=== PATIENT | female | born 1995 | race Caucasian/White ===

== ENCOUNTER 2021-05-12 08:56 | Emergency (ER) | payer OTHER, SELFPAY ==
[2021-05-12 09:03] VITALS: BP 104/66; PULSE 74; RESP 16; TEMP 36.7; O2SAT 99
--- NOTE | 2021-05-12 09:20 | ED.GENADUL_ITS ---
Discharge Plan Disposition Patient Disposition: HOME Condition: Stable Discharge Details Clinical Impression: Closed head injury with concussion Primary Care Provider: None,None ED Provider: Isi Small Home Meds and New Rx's Prescriptions: No Action No Known Home Meds RF: 0 Discharge Instructions Instructions: Head Injury (ED) Additional Instructions: Follow up with primary care provider in 3-5 days. Return to ED sooner if any worsening headache, vomiting or concerns. Increase oral fluids. Please take Tylenol or Ibuprofen with food every 4-6 hours as needed for pain and swelling. The CT of your head today was within normal limits. Please take the nausea medications as directed up to 3 times daily. Return for any worsening blurry vision, vomiting or any concerns. Stand Alone Forms: Work Release Discharge Data Discharge Date/Time-TO BE ENTERED AT DEPARTURE: 05/12/21 10:33 Medical Decision Making 26-year-old female presents to the ER chief complaint of closed head injury which occurred just prior to arrival while at work. Patient states that she was lifting a board and a 5 pound metal object struck on the left forehead. No loss of consciousness. Does endorse some blurry vision, nausea. Denies any neck pain. Did not take any medications prior to arrival. CT head without ordered to rule out skull fracture or intracranial abnormality. Discussed with and benefits of patient verbalized understanding. Zofran ibuprofen. Patient denies chance of . EXAM: CT HEAD WO CLINICAL HISTORY: Head Injury, blurry vision. TECHNIQUE: Imaging Protocol: Axial computed tomography images with coronal and sagittal reformatted images were created and reviewed COMPARISON: No exams were available for comparison FINDINGS: There are no skull fractures nor fluid in the visualized paranasal sinuses. There is no evidence of intracranial hemorrhage, mass effect, or shift of midline structures. There are no extra-axial fluid collections. The ventricles are not enlarged or shifted and there is no blood within the ventricular system nor within the basal cisterns. IMPRESSION: No acute intracranial findings on this noninfused CT scan of the brain. CT results relayed to patient. Patient remained hemodynamically stable alert and oriented throughout stay. Patient discharged with follow-up with PCP. Instructed to return for any red flags. This text was generated using [employer] system, please disregard any oddities of phrase or misspellings. HPI General Mode of arrival: ambulatory . Date/Time Provider Initiated Documentation: 05/12/21 09:14 . Limitations to Documentation: no limitations . Information obtained by: patient and RN notes reviewed . HPI Narrative: 26-year-old female presents to the ER chief complaint of closed head injury which occurred just prior to arrival while at work. Patient states that she was lifting a board and a 5 pound metal object struck on the left forehead. No loss of consciousness. Does endorse some blurry vision, nausea. Denies any neck pain. Did not take any medications prior to arrival. Related Data Home Medications Medication Instructions Recorded Confirmed Unknown [No Known Home Meds] 05/12/21 05/12/21 Allergies Allergy/AdvReac Type Severity Reaction Status Date / Time No Known Allergies Allergy Unverified 05/12/21 09:02 General Stated Complaint: HeadInjury KWAN: 3 Review of Systems All systems reviewed & are unremarkable except as noted in HPI and below Constitutional Constitutional: Reports headache(s) ENT Ears, Nose, Mouth, and Throat: Denies otalgia, Denies facial pain, Reports headache(s), Denies hearing loss and Denies neck pain Gastrointestinal Gastrointestinal: Reports nausea Musculoskeletal Musculoskeletal: Denies neck pain Neurologic Neurologic: Reports as per HPI, Reports headache(s) and Reports other visual disturbances [facility] Social History Smoking/Tobacco Use Status: Current every day Tobacco Type: cigarettes Smoking risk assessment performed?: Yes Alcohol Intake: current Alcohol Intake frequency: holidays/special occasions only Drug use: Never Substance use type: does not use Do you feel safe at home: Yes Do you feel safe in your relationship?: Yes Exam Narrative Exam Narrative: Constitutional: Alert and oriented x3. Appears stated age. Normal body habitus. Head: Normocephalic, small hematoma noted to left frontal scalp, tenderness palpation. Eyes: Pupils PERRLA, Red reflex noted, EOM's intact. Eyelids symmetrical without lesions, discharge, or swelling. ENT: Bilateral TM's WNL, External ear normal to inspection, no mastoid TTP, swelling, or erythema, Nasal turbinates WNL, no nasal discharge. Normal dentition, Posterior pharynx WNL, no exudate. Chest: RRR, Normal S1, S2, distal pulses intact. Resp: Lungs clear to auscultation bilaterally, no wheezes, rales, or rhonchi. Musculoskeletal: Normal gait, 5/5 strength to all four extremities. Skin: No suspicious rashes or lesions. Capillary refill less than 2 sec. Neurologic: Cranial nerves II-XII intact. Alert and oriented x 3. Hematologic/Lymphatic: No ecchymosis, no lymphadenopathy. Course Vital Signs Vital signs: Vital Signs Temperature 36.7 C 05/12/21 09:03 Pulse 74 05/12/21 09:03 Respiratory Rate 16 05/12/21 09:03 Blood Pressure 104/66 05/12/21 09:03 Pulse Oximetry 99 05/12/21 09:03 Temperature 36.7 C 05/12/21 09:03 Temperature Source Oral 05/12/21 09:03 Pulse 74 05/12/21 09:03 Respiratory Rate 16 05/12/21 09:03 Respiratory Effort Non-Labored 05/12/21 09:09 Respiratory Depth Normal 05/12/21 09:09 Respiratory Pattern Normal 05/12/21 09:09 Blood Pressure 104/66 05/12/21 09:03 Pulse Oximetry 99 05/12/21 09:03 Oxygen Delivery Method Room Air 05/12/21 09:03 Oxygen Flow Rate 0 05/12/21 09:03 Pain Level 8 05/12/21 09:03
[2021-05-12] MEDS: Ibuprofen 600 MG TAB PO (09:25)
[2021-05-12] MEDS: Ondansetron O.D.T. 4 MG TABEF PO (09:26)
--- NOTE | 2021-05-12 09:50 | DI.CT_ITS ---
Exam(s) CT HEAD WO EXAM: CT HEAD WO CLINICAL HISTORY: Head Injury, blurry vision. TECHNIQUE: Imaging Protocol: Axial computed tomography images with coronal and sagittal reformatted images were created and reviewed COMPARISON: No exams were available for comparison FINDINGS: There are no skull fractures nor fluid in the visualized paranasal sinuses. There is no evidence of intracranial hemorrhage, mass effect, or shift of midline structures. There are no extra-axial fluid collections. The ventricles are not enlarged or shifted and there is no blo od within the ventricular system nor within the basal cisterns. IMPRESSION: No acute intracranial findings on this noninfused CT scan of the brain. Report called to ER physician by myself RADIATION DOSE DELIVERED: 745.91mGy.cm Total DLP DATA REPOSITORY: All CT scans at this facility are submitted to the National Radiology Data Registry (NRDR) Dose Index Registry (DIR) with the [employer] (A[employer]). RADIATION OPTIMIZATION: All CT scans at this facility use at least one of these dose optimization te chniques: automated exposure control; mA and/or kV adjustment per patient size (includes targeted exa ms where dose is matched to clinical indication); or iterative reconstruction.
[2021-05-12] MEDS: Ondansetron O.D.T. 4 MG TABEF, 3 TABS/BTL PO (10:29)
[2021-05-12 10:34] VITALS: BP 100/68; PULSE 72; RESP 16; O2SAT 99
--- NOTE | 2021-05-12 18:45 | NUR.NOTE ---
Nursing Note: Referral to care management to establish pcp - libl 05/12/21
== END 2021-05-12 10:33 | disposition home or self-care (01) ==
PROVIDERS: Emergency Provider Registered Nurse Emergency
DX: S09.8XXA Other specified injuries of head, initial encounter (principal); S06.0X0A Concussion without loss of consciousness, initial encounter; W22.8XXA Striking against or struck by other objects, initial encounter; Y99.0 Civilian activity done for income or pay; R11.0 Nausea; H53.8 Other visual disturbances
CPT/HCPCS: 81025; 99284; 70450

== ENCOUNTER 2022-05-28 13:19 | Outpatient (REF) | payer SELFPAY | END 2022-05-28 13:20 | disposition home or self-care (01) | LOC: LBN 13:19 | PROVIDERS: Visit Provider Physician Assistant | DX: J02.9 Acute pharyngitis, unspecified (principal) | CPT/HCPCS: 87077; 87070 ==

== ENCOUNTER 2023-01-18 05:16 | Emergency (ER) | payer BC, SELFPAY ==
--- NOTE | 2023-01-18 05:15 | RT.EKG_ITS ---
APPROVED REPORT Exam: Resting ECG Reason for Exam: chest pain Patient Location: E HR:69 bpm ECG Measurements Heart Rate 69 AXIS WA 111 P 69 QRSd 92 QRS 77 QT 410 T 62 QTc 441 Conclusion Sinus rhythm...normal P axis, V-rate 60- 99. Sinus. Normal axis. Normal intervals. No STEMI. I have reviewed and interpreted ECG and agree with software generated interpretation.
[2023-01-18 05:19] VITALS: BP 109/60; PULSE 74; RESP 20; TEMP 36.7; O2SAT 100
--- NOTE | 2023-01-18 05:25 | ED.GENADUL_ITS ---
Discharge Plan Disposition Patient Disposition: Home Condition: Improving Discharge Details Clinical Impression: Chest wall pain ED Provider: Penelope Anderson Home Meds and New Rx's Prescriptions: Continued amoxicillin-pot clavulanate 875-125 mg tablet 1 tab PO BID Qty: 14 0RF Rx Instructions: Take with meal. Take 1 pill every 12 hours x 7days albuterol sulfate 90 mcg/actuation HFA aerosol inhaler 2 puff inhalation Q6H PRN (Reason: shortness of breath or wheezing) Qty: 6.7 0RF Rx Instructions: 2 puffs every 6 hours as needed for cough,sob, or wheeze benzonatate 100 mg capsule 100 mg PO TID PRN (Reason: cough) Qty: 20 0RF Rx Instructions: May take 1 capsule every 8 hours as needed for cough Discharge Instructions Instructions: Chest Wall Pain (ED) Additional Instructions: Your blood tests and EKG today are reassuring and show no evidence of acute concerning or significant findings. The final report of your chest x-ray is still pending and you will be notified if the radiologist notes any abnormal or concerning findings. Your symptoms could be due to a muscle strain, indigestion or a developing viral illness. Drink plenty of fluids and get plenty of rest. Alternate tylenol and motrin as needed and directed for pain. You have been placed on care management list to arrange for a follow-up appointment with a primary care doctor to establish care and for reevaluation. Return immediately to the emergency department if you develop any worsening or new concerning symptoms. Stand Alone Forms: Work Release Discharge Data Discharge Date/Time-TO BE ENTERED AT DEPARTURE: 01/18/23 06:54 Discharge Physician: Penelope Anderson Medical Decision Making 2903 -- 27-year-old female with history of former smoking quit 18 months ago presents with left-sided chest pain under her left breast that only occurs with deep breath with occasional radiation to her left upper chest since last night. EKG notes a rate of 69, normal axis, normal intervals, no STEMI. Vitals within normal limits. She localizes her main area of pain as the area underneath her left breast. There is no evidence of cellulitis, trauma, rash or tenderness. She does have an area of tenderness to the left superior anterior chest without evidence of cellulitis, trauma, rash or tenderness. Her lung sounds are clear throughout without rhonchi or wheezing. She has no lower extremity edema or calf tenderness. She has no fever, cough or shortness of breath to suggest pneumonia. She has no constant tearing or ripping sensation to suggest dissection. She has no tachypnea, tachycardia or hypoxia to suggest PE. Will obtain screening labs, chest x-ray and give IV Toradol and IV Pepcid and reassess. 0645 --Labs and imaging reviewed. Normal white blood cell count, electrolytes, troponin and lipase. Chest x-ray notes a questionable haziness in the left lung base. Final report pending. As patient has no report of productive cough, fever, hypoxia or tachycardia, will hold on treatment for pneumonia at this time. Patient reassessed and she reports she is feeling better would like to go home. Discussed that she will be notified if the radiologist identifies any acute or concerning findings. Advised to alternate Tylenol and Motrin. Advised that she can consider starting a daily [id number] Pepcid for 1 to 2 weeks. She was placed on care management's list to arrange for a follow-up appointment with the primary care doctor to establish care. Usual and customary return precautions given prior to discharge. X-ray resulted after discharge and no acute findings. Medical Records Medical records reviewed: Yes I reviewed the patient's medical records. Imaging Data Radiologic Study: Radiologist's impression: XR Chest Exam date and time: 01/18/2023 5:59 AM Age: 27 years old Clinical indication: Pain; Left-sided; Additional info: L sided anterior chest pain, R/O acute disease TECHNIQUE: Imaging protocol: Radiologic exam of the chest. Views: 2 views. COMPARISON: No relevant prior studies available. FINDINGS: Lungs: Unremarkable. No consolidation. Pleural spaces: Unremarkable. No pleural effusion. No pneumothorax. Heart/Mediastinum: Unremarkable. No cardiomegaly. Bones/joints: Unremarkable. IMPRESSION: No evidence for acute pulmonary disease. Lab Data Lab results reviewed: Yes I reviewed the patient's lab results. Labs: Laboratory Tests Range/Units 01/18/23 01/18/23 01/18/23 05:30 05:30 05:30 WBC (4.4-10.8) 10^3/uL 6.88 RBC (3.93-5.22) 10^6/uL 4.71 Hgb (11.2-15.7) g/dL 13.8 Hct (36.0-46.0) % 41.4 MCV (80-95) fL 88 MCH (27.0-33.0) pg 29.3 MCHC (32.0-36.0) % 33.3 RDW (11.7-14.6) % 12.4 Plt Count (130-400) 10^3/uL 307 MPV (8.0-11.0) fL 9.9 Immature Gran % 0.1 Neutrophils % 42.5 Lymphocytes % 46.5 Monocytes % 8.3 Eosinophils % 2.0 Basophils % 0.6 Nucleated RBC % (0.0-0.3) % 0.0 Absolute Neutrophils (1.2-6.7) 10^3/uL 2.92 Absolute Lymphocytes (1.2-3.4) 10^3/uL 3.20 Absolute Monocytes (0.1-0.8) 10^3/uL 0.57 Absolute Eosinophils (0.0-0.7) 10^3/uL 0.14 Absolute Basophils (0.0-0.2) 10^3/uL 0.04 D-Dimer (<500) ng/mlFEU 204 Sodium (136-145) mmol/L 139 Potassium (3.5-5.1) mmol/L 3.8 Chloride (98-107) mmol/L 104 Carbon Dioxide (21.0-32.0) mmol/L 26.4 Anion Gap (3-11) mmol/L 8.6 BUN (7-18) mg/dL 9 Creatinine (0.55-1.02) mg/dL 0.7 Est GFR (CKD-EPI 2020) (mL/min/1.73m2) 122.25 Glucose (74-106) mg/dL 90 Calcium (8.5-10.1) mg/dL 9.1 Magnesium (1.8-2.4) mg/dL 1.8 Total Bilirubin (0.2-1.0) mg/dL 0.6 AST (15-37) U/L 11 L ALT (14-59) U/L 19 Alkaline Phosphatase (46-116) U/L 126 H Troponin I (<or=60) ng/L < 50 Total Protein (6.4-8.2) g/dL 7.5 Albumin (3.4-5.0) g/dL 3.8 Lipase (16-77) U/L Range/Units 01/18/23 05:30 WBC (4.4-10.8) 10^3/uL RBC (3.93-5.22) 10^6/uL Hgb (11.2-15.7) g/dL Hct (36.0-46.0) % MCV (80-95) fL MCH (27.0-33.0) pg MCHC (32.0-36.0) % RDW (11.7-14.6) % Plt Count (130-400) 10^3/uL MPV (8.0-11.0) fL Immature Gran % Neutrophils % Lymphocytes % Monocytes % Eosinophils % Basophils % Nucleated RBC % (0.0-0.3) % Absolute Neutrophils (1.2-6.7) 10^3/uL Absolute Lymphocytes (1.2-3.4) 10^3/uL Absolute Monocytes (0.1-0.8) 10^3/uL Absolute Eosinophils (0.0-0.7) 10^3/uL Absolute Basophils (0.0-0.2) 10^3/uL D-Dimer (<500) ng/mlFEU Sodium (136-145) mmol/L Potassium (3.5-5.1) mmol/L Chloride (98-107) mmol/L Carbon Dioxide (21.0-32.0) mmol/L Anion Gap (3-11) mmol/L BUN (7-18) mg/dL Creatinine (0.55-1.02) mg/dL Est GFR (CKD-EPI 2020) (mL/min/1.73m2) Glucose (74-106) mg/dL Calcium (8.5-10.1) mg/dL Magnesium (1.8-2.4) mg/dL Total Bilirubin (0.2-1.0) mg/dL AST (15-37) U/L ALT (14-59) U/L Alkaline Phosphatase (46-116) U/L Troponin I (<or=60) ng/L Total Protein (6.4-8.2) g/dL Albumin (3.4-5.0) g/dL Lipase (16-77) U/L 32 ECG Data Attestation: I personally reviewed and interpreted this ECG (s) as follows: Interpretation: Rate of 69, normal axis, normal intervals, no STEMI. HPI General Mode of arrival: ambulatory . Date/Time Provider Initiated Documentation: 01/18/23 05:22 . Limitations to Documentation: no limitations . Information obtained by: patient . HPI Narrative: Patient is a 27-year-old female with a former smoking history who quit 18 months ago presents with what she reports as lung pain on the left side of her chest since 9 PM last night. Patient states the pain started while she was sitting down eating. She states she was eating white rice and a Dr. Pepper. She states the pain has been sharp and stabbing and only occurring with deep breath and when laying on her left side. She states the pain does occasionally radiate to the area above her left breast. She denies any known injury but states she work s at the [employer] and does frequently lift and carry boxes. She denies any known fever, sore throat, cough, difficulty breathing, nausea, vomiting, diarrhea, abdominal pain, leg pain or swelling, recent travel, recent surgery, alcohol or drug use. She has not taken any medication for her pain. Related Data Home Medications Medication Instructions Recorded Confirmed albuterol sulfate 90 mcg/actuation 2 puff inhalation Q6H PRN 07/04/22 07/04/22 aerosol inhaler shortness of breath or wheezing #6.7 grams amoxicillin 875 mg-potassium 1 tab PO BID #14 tabs 07/04/22 07/04/22 clavulanate 125 mg tablet benzonatate 100 mg capsule 100 mg PO TID PRN cough #20 caps 07/04/22 07/04/22 Previous Rx's Medication Instructions Recorded albuterol sulfate 90 mcg/actuation 2 puff inhalation Q6H PRN 07/04/22 aerosol inhaler shortness of breath or wheezing #6.7 grams amoxicillin 875 mg-potassium 1 tab PO BID #14 tabs 07/04/22 clavulanate 125 mg tablet benzonatate 100 mg capsule 100 mg PO TID PRN cough #20 caps 07/04/22 Allergies Allergy/AdvReac Type Severity Reaction Status Date / Time No Known Allergies Allergy Unverified 07/04/22 16:26 General Stated Complaint: RespSymp KWAN: 3 Review of Systems All systems reviewed & are unremarkable except as noted in HPI and below Constitutional Constitutional: Reports as per HPI, Denies chills and Denies fever(s) Eyes Eyes: Denies blurry vision ENT Ears, Nose, Mouth, and Throat: Denies dizziness, Denies sore throat and Denies throat swelling Cardiovascular Cardiovascular: Denies chest pain and Denies dyspnea Respiratory Respiratory: Denies cough and Denies dyspnea Comments: lung pain Gastrointestinal Gastrointestinal: Denies abdominal pain, Denies diarrhea and Denies vomiting Genitourinary Genitourinary: Denies hematuria and Denies dysuria Musculoskeletal Musculoskeletal: Denies back pain and Denies numbness Integumentary/Breasts Skin/Breast: Denies lesions and Denies rash Neurologic Neurologic: Denies dizziness, Denies localized weakness and Denies numbness Allergic/Immunologic Allergic/Immunologic: Denies throat swelling PFSH All Active Problems (Updated 01/18/23 @ 06:47 by Penelope Anderson DO) Chest wall pain (Acute) Closed head injury with concussion (Acute) Medical History (Updated 01/18/23 @ 06:47 by Penelope Anderson DO) No significant past medical history Surgical History (Updated 01/18/23 @ 05:43 by Penelope Anderson DO) History of oral surgery Social History Smoking/Tobacco Use Status: Former Tobacco Use Quit Date: 09/04/20 Tobacco: How many years used: 10 Smoking risk assessment performed?: Yes Alcohol Intake: current Alcohol Intake frequency: holidays/special occasions only Drug use: Never Substance use type: does not use Do you feel safe at home: Yes Do you feel safe in your relationship?: Yes Exam Const General: cooperative, healthy appearing and no acute distress Orientation: alert, awake and oriented x3 HENMT Head: normal to inspection Face and sinus: normal facial exam Eyes General: appearance normal, both eyes and all related structures Pupils: PERRL EOM: EOM intact bilaterally Neck Neck: normal visual inspection and No submandibular swelling Lymphatic: no lymphadenopathy noted Chest Chest: normal inspection of the chest and no tenderness Chest/axillae images: 1. Tenderness to palpation to anterior superior chest above left breast. No erythema, edema, rash, ecchymosis or lesions. 2. Main location of pain, nontender, no erythema, edema, rash, ecchymosis or lesions. Resp Effort & Inspection: normal respiratory effort and able to speak in complete sentences Auscultation: clear to auscultation bilaterally Cardio Rate: regular rate Rhythm: regular rhythm GI Inspection: normal to inspection Palpation: soft, not firm, not rigid and nontender Auscultation: hypoactive bowel sounds Back/Spine/Pelvis Thoracic/Lumbar Spine: thoracic and lumbar spine normal to inspection Pelvis: no pain with anterior-posterior compression Skin General skin exam: no rashes or lesions noted Neuro General: patient alert, patient awake and patient oriented x3 Cognition: normal cognition Speech: speech normal Motor: muscle tone normal throughout Sensory Exam: no sensory deficits noted Extrem General: normal to inspection, full ROM, capillary refill normal, no calf tenderness bilaterally and no edema Psych Appearance: grossly normal Mental Status: mental status grossly normal Speech and Movement: speech and movement normal Affect: normal affect Course Vital Signs Vital signs: Vital Signs Temperature 98.0 F 01/18/23 05:19 Pulse 74 01/18/23 05:19 Respiratory Rate 20 01/18/23 05:19 Blood Pressure 109/60 01/18/23 05:19 Pulse Oximetry 100 01/18/23 05:19 Temperature 98.0 F 01/18/23 05:19 Temperature Source Oral 01/18/23 05:19 Pulse 74 01/18/23 05:19 Respiratory Rate 20 01/18/23 05:19 Blood Pressure 109/60 01/18/23 05:19 Blood Pressure Position Sitting 01/18/23 05:19 Pulse Oximetry 100 01/18/23 05:19 Oxygen Delivery Method Room Air 01/18/23 05:19 Oxygen Flow Rate 0 01/18/23 05:19 Pain Level 7 01/18/23 05:19
--- NOTE | 2023-01-18 05:30 | DI.RAD_ITS ---
Exam(s) XR CHEST 2V PA LATERAL EXAM: XR CHEST 2V PA LATERAL CLINICAL HISTORY: L sided anterior chest pain, r/o acute disease TECHNIQUE: 2D digital imaging was performed. COMPARISON: No exams were available for comparison FINDINGS: HEART: Normal size. Aorta: Not dilated. PULMONARY VASCULATURE: Normal. LUNGS: Clear. PLEURAL SPACE: No pleural effusion or pneumothorax. BONE:Unremarkable for age. IMPRESSION: No acute abnormality. DATA REPOSITORY: RADIATION DOSE DELIVERED:
[2023-01-18 05:34] LABS: Abs Immature Grans 0.01 10^3/uL (0.0-0.06); Absolute Basophil Count 0.04 10^3/uL (0.0-0.2); Absolute Eosinophil Count 0.14 10^3/uL (0.0-0.7); Absolute Monocyte Count 0.57 10^3/uL (0.1-0.8); Absolute Neutrophil Count 2.92 10^3/uL (1.2-6.7); Basophils % 0.6; HCT 41.4 % (36.0-46.0); HGB 13.8 g/dL (11.2-15.7); Immature Grans % 0.1; Lymphocytes % 46.5; MCH 29.3 pg (27.0-33.0); MCHC 33.3 % (32.0-36.0); MCV 88 fL (80-95); MPV 9.9 fL (8.0-11.0); Monocytes % 8.3; Neutrophils % 42.5; Platelet Count 307 10^3/uL (130-400); RBC 4.71 10^6/uL (3.93-5.22); RDW 12.4 % (11.7-14.6); RDW-SD 40.5 fL; WBC 6.88 10^3/uL (4.4-10.8)
[2023-01-18] MEDS: Ketorolac 30 MG/ML VIAL IVP (05:46)
[2023-01-18] MEDS: Famotidine 20 MG/2 ML VIAL IVP (05:46)
--- NOTE | 2023-01-18 05:50 | NUR.NOTE ---
Pt states that she is franco and does not want a POC hcg. Justin, DO made aware and is okay with pt going for XR.
[2023-01-18 05:53] LABS: ALT 19 U/L (14-59); AST 11 U/L (15-37); Albumin 3.8 g/dL (3.4-5.0); Alkaline Phosphatase 126 U/L (46-116); Anion Gap 8.6 mmol/L (3-11); BUN 9 mg/dL (7-18); Bilirubin, Total 0.6 mg/dL (0.2-1.0); CO2 26.4 mmol/L (21.0-32.0); CREATININE 0.7 mg/dL (0.55-1.02); Calcium 9.1 mg/dL (8.5-10.1); Chloride 104 mmol/L (98-107); Estimated GFR 122.25 (mL/min/1.73m2); Glucose 90 mg/dL (74-106); Magnesium 1.8 mg/dL (1.8-2.4); Potassium 3.8 mmol/L (3.5-5.1); Sodium 139 mmol/L (136-145); Total Protein 7.5 g/dL (6.4-8.2); Troponin I < 50 ng/L (<or=60)
[2023-01-18 06:05] LABS: D-Dimer 204 ng/mlFEU (<500)
[2023-01-18 06:10] LABS: Lipase 32 U/L (16-77)
[2023-01-18 06:46] VITALS: BP 93/69; PULSE 63; RESP 14; O2SAT 98
--- NOTE | 2023-01-18 07:27 | NUR.NOTE ---
Nursing Note: Referral given to Care Management to establish care, chest pain/in 1 to 2 weeks.
--- NOTE | 2023-01-18 08:19 | DI.VRAD_ITS ---
PROCEDURE INFORMATION: Exam: XR Chest Exam date and time: 01/18/2023 5:59 AM Age: 27 years old Clinical indication: Pain; Left-sided; Additional info: L sided anterior chest pain, R/O acute disease TECHNIQUE: Imaging protocol: Radiologic exam of the chest. Views: 2 views. COMPARISON: No relevant prior studies available. FINDINGS: Lungs: Unremarkable. No consolidation. Pleural spaces: Unremarkable. No pleural effusion. No pneumothorax. Heart/Mediastinum: Unremarkable. No cardiomegaly. Bones/joints: Unremarkable. IMPRESSION: No evidence for acute pulmonary disease. Dictated and Authenticated by: John Valdes MD. Ordering:PADILLA Negrete MD
--- NOTE | 2023-01-18 15:25 | CMACTNOTE_ITS ---
Date of service: 01/18/23 Time of Service: 15:25 Care Management Activity Note Activity Note Text Activity Note Text: Erin is seen in the ED for chest wall pain. At the request of ED provider, CM coordinates a referral to Katherine Menendez MD, of [facility], t-doc, to assist Erin in obtaining a follow up appointment and in establishing care with a PCP. She has BCBS for insurance.
== END 2023-01-18 06:54 | disposition home or self-care (01) ==
LOC: ER 07:06
PROVIDERS: Emergency Provider Physician Assistant
DX: R07.89 Other chest pain (principal); Z87.891 Personal history of nicotine dependence
CPT/HCPCS: 36415; 80053; 81025; 83690; 93005; 96374; 96375; 99284; 71046; 83735; 84484; 85025; 85379; 93010; J1885

== ENCOUNTER 2023-04-17 12:00 | Outpatient (REF) | payer BC, SELFPAY | END 2023-04-17 12:01 | disposition home or self-care (01) | LOC: LBN 12:00 | PROVIDERS: Visit Provider Physician Assistant | DX: J02.9 Acute pharyngitis, unspecified (principal) | CPT/HCPCS: 87070 ==

== ENCOUNTER 2023-07-10 11:22 | Outpatient (REF) | payer BC, SELFPAY ==
[2023-07-10 13:00] LABS: Abs Immature Grans 0.02 10^3/uL (0.0-0.06); Absolute Basophil Count 0.04 10^3/uL (0.0-0.2); Absolute Eosinophil Count 0.06 10^3/uL (0.0-0.7); Absolute Lymphocyte Count 1.42 10^3/uL (1.2-3.4); Absolute Monocyte Count 0.32 10^3/uL (0.1-0.8); Absolute Neutrophil Count 3.52 10^3/uL (1.2-6.7); Basophils % 0.7; Eosinophils % 1.1; HCT 39.7 % (36.0-46.0); HGB 12.8 g/dL (11.2-15.7); Immature Grans % 0.4; Lymphocytes % 26.4; MCH 28.3 pg (27.0-33.0); MCHC 32.2 % (32.0-36.0); MCV 88 fL (80-95); MPV 10.5 fL (8.0-11.0); Monocytes % 5.9; Neutrophils % 65.5; Platelet Count 319 10^3/uL (130-400); RBC 4.53 10^6/uL (3.93-5.22); RDW 12.6 % (11.7-14.6); RDW-SD 40.4 fL; WBC 5.38 10^3/uL (4.4-10.8)
[2023-07-10 13:21] LABS: ALT 21 U/L (14-59); AST 15 U/L (15-37); Alkaline Phosphatase 125 U/L (46-116); Anion Gap 8.5 mmol/L (3-11); BUN 12 mg/dL (7-18); Bilirubin, Total 0.3 mg/dL (0.2-1.0); CO2 26.5 mmol/L (21.0-32.0); CREATININE 0.5 mg/dL (0.55-1.02); Calcium 9.8 mg/dL (8.5-10.1); Chloride 103 mmol/L (98-107); Estimated GFR 131.75 (mL/min/1.73m2); Glucose 95 mg/dL (74-106); Potassium 4.4 mmol/L (3.5-5.1); Sodium 138 mmol/L (136-145); TSH (W/Ref FT4) 1.99 uIU/mL (0.36-3.74); Total Protein 7.1 g/dL (6.4-8.2)
[2023-07-11 10:51] LABS: Lyme Ab w Rflx to Lyme Confirm Negative (Negative)
[2023-07-12 23:41] LABS: Anaplasma phagocytophilum Negative (Negative); B. miyamotoi PCR Negative (Negative); Babesia divergens/MO-1 Negative (Negative); Babesia duncani Negative (Negative); Babesia microti Negative (Negative); Ehrlichia chaffeensis Negative (Negative); Ehrlichia ewingii/canis Negative (Negative); Ehrlichia muris eauclairensis Negative (Negative)
== END 2023-07-10 11:23 | disposition home or self-care (01) ==
LOC: LBN 11:22
PROVIDERS: Visit Provider Physician Assistant
DX: G43.109 Migraine with aura, not intractable, without status migrainosus (principal)
CPT/HCPCS: 80053; 87798; 84443; 85025; 86618

== ENCOUNTER 2023-12-19 16:55 | Outpatient (REF) | payer BC, SELFPAY ==
[2023-12-19 20:53] LABS: HCT 41.3 % (36.0-46.0); HGB 13.6 g/dL (11.2-15.7); MCH 28.5 pg (27.0-33.0); MCHC 32.9 % (32.0-36.0); MCV 87 fL (80-95); MPV 10.8 fL (8.0-11.0); Platelet Count 327 10^3/uL (130-400); RBC 4.77 10^6/uL (3.93-5.22); RDW 12.4 % (11.7-14.6); RDW-SD 39.7 fL; WBC 7.73 10^3/uL (4.4-10.8)
[2023-12-19 21:17] LABS: ALT 21 U/L (14-59); AST 13 U/L (15-37); Alkaline Phosphatase 125 U/L (46-116); Anion Gap 11.1 mmol/L (3-11); BUN 15 mg/dL (7-18); Bilirubin, Total 0.3 mg/dL (0.2-1.0); CO2 23.9 mmol/L (21.0-32.0); CREATININE 0.8 mg/dL (0.55-1.02); Calcium 9.2 mg/dL (8.5-10.1); Chloride 105 mmol/L (98-107); Glucose 81 mg/dL (74-106); Potassium 4.5 mmol/L (3.5-5.1); Sodium 140 mmol/L (136-145); TSH (W/Ref FT4) 3.04 uIU/mL (0.36-3.74); Total Protein 7.3 g/dL (6.4-8.2)
[2023-12-21 10:55] LABS: Hepatitis C Ab w Rflx HCV PCR Negative (Negative)
[2023-12-21 11:21] LABS: HIV-1/2 Ag & Ab Screen Negative (Negative)
== END 2023-12-19 16:56 | disposition home or self-care (01) ==
LOC: LBN 16:55
PROVIDERS: PCP Nurse Practitioner Family; Visit Provider Nurse Practitioner Family
DX: R63.5 Abnormal weight gain (principal); Z11.4 Encounter for screening for human immunodeficiency virus [HIV]; Z11.59 Encounter for screening for other viral diseases
CPT/HCPCS: 80053; 85027; 86803; 87389; 84443

== ENCOUNTER 2024-05-23 16:12 | Outpatient (CLI) | payer SELFPAY ==
--- NOTE | 2024-05-23 16:40 | DI.RAD_ITS ---
Exam(s) XR CHEST 2V PA LATERAL EXAM: XR CHEST 2V PA LATERAL CLINICAL HISTORY: Cough, R05.9. TECHNIQUE: 2D digital imaging was performed. COMPARISON: Prior chest x-ray 01/18/2023 FINDINGS: 2 views: Heart size is normal. The mediastinum is not widened. Lungs are clear. No infiltrates nor pleural effusions. IMPRESSION: No acute pulmonary findings. DATA REPOSITORY: RADIATION DOSE DELIVERED:
--- NOTE | 2024-05-23 17:01 | DI.VRAD_ITS ---
PROCEDURE INFORMATION: Exam: XR Chest Exam date and time: 05/23/2024 4:34 PM Age: 29 years old Clinical indication: Cough TECHNIQUE: Imaging protocol: Radiologic exam of the chest. Views: 2 views. COMPARISON: CR XR CHEST 2V PA LATERAL 01/18/2023 5:59 AM FINDINGS: Lungs: Clear lungs. Pleural spaces: No pneumothorax. No sizable pleural effusion. Heart/Mediastinum: No cardiomegaly. Bones/joints: Unremarkable. IMPRESSION: Clear lungs. Dictated and Authenticated by: Amor Newell MD. Ordering:CAPO Morelos MD
== END 2024-05-23 16:32 ==
PROVIDERS: PCP Nurse Practitioner Family; Visit Provider Nurse Practitioner Family
DX: R05.9 Cough, unspecified (principal)
CPT/HCPCS: 71046

== ENCOUNTER 2024-05-23 16:21 | Outpatient (REF) | payer SELFPAY | END 2024-05-23 16:22 | disposition home or self-care (01) | LOC: LBN 16:21 | PROVIDERS: PCP Nurse Practitioner Family; Visit Provider Nurse Practitioner Family | DX: J02.9 Acute pharyngitis, unspecified (principal) | CPT/HCPCS: 87070 ==

== ENCOUNTER 2024-09-17 04:00 | Outpatient (CLI) | payer BC, SELFPAY ==
[2024-09-17 15:34] LABS: Abs Immature Grans 0.01 10^3/uL (0.0-0.06); Absolute Basophil Count 0.03 10^3/uL (0.0-0.2); Absolute Lymphocyte Count 1.63 10^3/uL (1.2-3.4); Absolute Monocyte Count 0.42 10^3/uL (0.1-0.8); Absolute Neutrophil Count 3.87 10^3/uL (1.2-6.7); Basophils % 0.5 %; Eosinophils % 1.7 %; HCT 40.3 % (36.0-46.0); HGB 12.8 g/dL (11.2-15.7); Immature Grans % 0.2 %; Lymphocytes % 26.9 %; MCH 28.2 pg (27.0-33.0); MCHC 31.8 % (32.0-36.0); MCV 89 fL (80-95); MPV 10.7 fL (8.0-11.0); Monocytes % 6.9 %; Neutrophils % 63.8 %; Platelet Count 304 10^3/uL (130-400); RBC 4.54 10^6/uL (3.93-5.22); RDW 13.1 % (11.7-14.6); RDW-SD 42.8 fL; WBC 6.06 10^3/uL (4.4-10.8)
[2024-09-17 15:40] LABS: Hemoglobin A1C 5.3 % (<5.7)
[2024-09-17 16:03] LABS: ALT 14 U/L (14-59); AST 17 U/L (15-37); Albumin 3.7 g/dL (3.4-5.0); Alkaline Phosphatase 112 U/L (46-116); Anion Gap 7.3 mmol/L (3-11); BUN 15 mg/dL (7-18); Bilirubin, Total 0.35 mg/dL (0.2-1.0); CO2 26.7 mmol/L (21.0-32.0); CREATININE 0.7 mg/dL (0.55-1.02); Calcium 9.4 mg/dL (8.5-10.1); Calculated LDL 74 mg/dL (<100); Chloride 107 mmol/L (98-107); Cholesterol 136 mg/dL (<200); Estimated GFR 120.74 (mL/min/1.73m2); Glucose 79 mg/dL (74-106); HDL Cholesterol 48 mg/dL (40-60); Potassium 4.7 mmol/L (3.5-5.1); Sodium 141 mmol/L (136-145); TSH 1.92 uIU/mL (0.36-3.74); Total Protein 7.3 g/dL (6.4-8.2); Triglyceride 70 mg/dL (<150); Vitamin D 25 Total 21.8 ng/mL (30-100)
== END 2024-09-17 04:01 | disposition home or self-care (01) ==
LOC: LOS 04:00
PROVIDERS: PCP Nurse Practitioner Family; Visit Provider Naturopath
DX: M54.50 Low back pain, unspecified (principal)
CPT/HCPCS: 80053; 80061; 82306; 83036; 84443; 85025

== ENCOUNTER 2024-09-24 01:43 | Outpatient (CLI) | payer BC, SELFPAY ==
--- NOTE | 2024-09-24 | DI.RAD_ITS ---
Exam(s) XR THORACIC SPINE COMPLETE EXAM: XR THORACIC SPINE COMPLETE CLINICAL HISTORY: Pain in upper back. TECHNIQUE: 2D digital imaging was performed. Three views. COMPARISON: No exams were available for comparison FINDINGS: BONES: There is no fracture or destructive lesion. The vertebral bodies and posterior elements are un remarkable. ALIGNMENT: Within normal limits. DISKS: Interverebral disc spaces are maintained. SOFT TISSUE: Visualized lungs are clear. IMPRESSION: Unremarkable radiographs of the thoracic spine. DATA REPOSITORY: RADIATION DOSE DELIVERED:
--- NOTE | 2024-09-24 | DI.RAD_ITS ---
Exam(s) XR LUMBAR SPINE COMPLETE EXAM: XR LUMBAR SPINE COMPLETE CLINICAL HISTORY: Chronic lumbar pain, M54.50. TECHNIQUE: 2D digital imaging was performed. Five views. COMPARISON: No exams were available for comparison FINDINGS: BONES: No fracture or destructive lesion. Vertebral body heights are maintained. No facet hypertro phy identified . DISKS: Intervertebral disc spaces are maintained. ALIGNMENT: Lumbar spinal alignment is within normal limits. SOFT TISSUE: Normal. IMPRESSION: Unremarkable radiographs of the lumbar spine. DATA REPOSITORY: RADIATION DOSE DELIVERED:
== END 2024-09-24 02:03 ==
LOC: DI 01:43
PROVIDERS: PCP Nurse Practitioner Family; Visit Provider Naturopath
DX: M54.50 Low back pain, unspecified (principal); M54.6 Pain in thoracic spine
CPT/HCPCS: 72072; 72110

== ENCOUNTER 2025-03-20 01:31 | Outpatient (CLI) | payer SELFPAY | END 2025-03-20 01:32 | disposition home or self-care (01) | PROVIDERS: PCP Nurse Practitioner Family; Visit Provider Physician Assistant Medical | DX: F64.9 Gender identity disorder, unspecified (principal) | CPT/HCPCS: 36415; 84403 ==